=== PATIENT | male | born 1955 | race Caucasian/White ===

== ENCOUNTER 2023-01-25 00:37 | Day surgery (SDC) | payer BC, SELFPAY ==
[2023-01-24 13:30] VITALS: BMI 39.4
[2023-01-25] VITALS (10 sets, daily range): BP systolic 89–137; BP diastolic 48–90; PULSE 48–77; RESP 14–18; TEMP 36.4; O2SAT 96–99; BMI 38.7
--- NOTE | 2023-01-25 08:30 | ECG_ITS ---
Measurements Intervals [place] Rate: 56 P: 61 SD: 196 QRS: 36 QRSD: 100 T: 71 QT: 430 QTc: 417 Interpretive Statements SINUS BRADYCARDIA W ATRIAL PREMATURE COMPLEX POSSIBLE LEFT ATRIAL ENLARGEMENT LOW QRS VOLTAGE IN LIMB LEADS CANNOT RULE OUT SEPTAL INFARCT, AGE INDETERMINATE BORDERLINE T WAVE ABNORMALITY- HIGH LATERAL LEADS ABNORMAL ECG COMPARED TO ECG 01/25/2023 08:37:02 SINUS BRADYCARDIA NOW PRESENT Electronically Signed On 01-25-2023 11:12:22 RISK MGR by Jn Shelley D.O.
[2023-01-25] MEDS: SODIUM CHLORIDE 0.9% IV 1,000 ML 30 ML IV CONT (09:15)
[2023-01-25 09:33] LABS: Anion Gap 6 mmol/L (8-16); Blood Urea Nitrogen 17 mg/dL (9-20); Calcium 8.8 mg/dL (8.4-10.2); Carbon Dioxide 24 mmol/L (22-30); Chloride 103 mmol/L (98-107); Estimated CRCL calculation 86 ml/min; Estimated Glomerular Filt Rate > 60; Glucose 106 mg/dL (65-110); Magnesium 2.2 mg/dL (1.6-2.3); Potassium 4.1 mmol/L (3.4-5.0); Sodium 133 mmol/L (137-145)
--- NOTE | 2023-01-25 10:30 | ECG_ITS ---
Measurements Intervals [place] Rate: 69 P: DC: 0 QRS: 45 QRSD: 110 T: 25 QT: 376 QTc: 404 Interpretive Statements ATRIAL FIBRILLATION CANNOT RULE OUT SEPTAL INFARCT, AGE INDETERMINATE ABNORMAL ECG NO PREVIOUS ECG AVAILABLE FOR COMPARISON Electronically Signed On 01-25-2023 8:39:53 SENIOR DATA SCIENTIST by Jn Shelley D.O.
--- NOTE | 2023-01-25 10:39 | WPDMODSED ---
Moderate Sedation Note-Pt Data Patient Data Diagnosis: Atrial fibrillation of unknown chronicity Present Complaint: No complaints this morning Procedure to be performed/Plan: DC cardioversion Allergies Allergy/AdvReac Type Severity Reaction Status Date / Time ALEJANDRA Inhibitors Allergy Mild cough Verified 01/25/23 08:44 lisinopril AdvReac Mild COUGH Verified 01/25/23 08:44 Home Medications Medication Instructions Recorded Confirmed Type calcium carbonate 400 mg calcium 400 mg PO DAILY PRN Indigestion 01/15/20 01/24/23 History (1,000 mg) chewable tablet (Tums Ultra) cetirizine 10 mg tablet (Zyrtec) 10 mg PO DAILY #90 tabs 04/30/22 01/24/23 Rx irbesartan 300 See Rx Instructions .Route 07/31/22 01/24/23 Rx mg-hydrochlorothiazide 12.5 mg .COMPLEX #90 tabs tablet amlodipine 5 mg tablet See Rx Instructions .Route 12/20/22 01/24/23 Rx .COMPLEX #90 tabs rosuvastatin 5 mg tablet See Rx Instructions .Route 12/20/22 01/25/23 Rx .COMPLEX #90 tabs clopidogrel 75 mg tablet See Rx Instructions .Route 12/28/22 01/25/23 Rx .COMPLEX #90 tabs apixaban 5 mg tablet (Eliquis) 5 mg PO BID Afib #60 tabs 01/18/23 01/25/23 Rx tamsulosin 0.4 mg capsule See Rx Instructions .Route 01/22/23 01/24/23 Rx .COMPLEX #90 caps finasteride 5 mg tablet See Rx Instructions .Route 01/23/23 01/24/23 Rx .COMPLEX #90 tabs nicotine (polacrilex) 2 mg buccal 2 mg PO BID 01/24/23 01/24/23 History lozenge sotalol 80 mg tablet 80 mg PO BID 01/24/23 01/25/23 History Current Medications: Active Medications Sodium Chloride (Normal Saline Iv) 1,000 mls @ 30 mls/hr IV CONT .Q24H MIO Last Admin: 01/25/23 09:15 Dose: 30 mls/hr Sedation/Anesthesia: No previous sedation/anesthesia problems (including family history). [facility] Past Medical History Medical History Abnormal sense of taste Acute bronchitis due to infection Acute non-recurrent maxillary sinusitis Benign essential HTN Body mass index [BMI] 37.0-37.9, adult (06/05/19) Carotid atherosclerosis Colon cancer screening Coronary artery disease Dietary counseling and surveillance (08/01/18) Elevated glucose Encounter for vitamin deficiency screening History of CVA (cerebrovascular accident) without residual deficits Hyperlipidemia Other allergy status, other than to drugs and biological substances Screening PSA (prostate specific antigen) Sleep apnea, obstructive Vitamin B12 deficiency Family History Family History Father Family history of premature coronary heart disease Cerebrovascular accident Social History Social History Social History: Smoking packs per day: 1 Smoking cigarettes per day: 20.0 Years smoked: 35 Smoking pack-years: 35.00 Smoking status: Former smoker Tobacco type: cigarettes Second hand tobacco smoke exposure: No Smoking end date: 12/23/20 Alcohol intake: current Alcohol use details: about once a week Substance use: never Substance use type: does not use Living arrangements: with family Occupation/Education: occupation Gender identity (if verbalized by the patient): Male Sexual Orientation (if Verbalized by the Patient): Straight or Heterosexual Spiritual care concerns: No Mod Sed Physical Exam Physical Exam Pre Procedural Exam: Normal: Nose, Neck, Throat, Airway, Lungs, Heart Size, Heart Rate, Neuro Exam and Extremities and Variation: Appearance (Obese man no apparent distress) and Heart Rhythm (Irregularly irregular) Hours since solid foods: 12 Hours since liquid intake: 12 Mallampati Classification: class II Internal Medicine - PN: Obj Da Vital Signs Vital Signs: Vital Signs - 24 hr 01/25/23 08:49 Temperature 36.4 C L Pulse Rate 76 Respiratory Rate 16 Blood Pressure 118/77 Pulse Oximetry 97 Oxygen Delivery Room Air Meds
--- NOTE | 2023-01-25 10:51 | P.PCNCC_ITS ---
Cardiac Cath Procedure Note Date of procedure:: 01/25/23 Performing physician:: Shola Ramirez MD Indication:: Atrial fibrillation Brief clinical history:: This is a 67-year-old man with atrial fibrillation of recent onset. Chronicity of the arrhythmia is not exactly known. He has been anticoagulated as an outpatient an attempt was scheduled this morning for cardioversion. Procedure Procedure performed:: DC cardioversion Sedation/Medication given:: IV propofol in aliquots total dosage of 70 mg Access site:: Right hand Estimated blood loss:: 0 Procedure note:: Patient was brought to the cardiac catheterization lab holding area in the state defibrillator patches were placed in the AP position. Defibrillator was turned on at 200 joules output synchronized to the R-wave. He was then sedated with propofol a total dosage of 70 mg was given with in 2 aliquots. This provided excellent sedation. He was counter shocked with 200 joules x1 attempt which restored sinus bradycardia with heart rate 50-55. Findings:: As above Conclusion:: Successful uncomplicated DC cardioversion of atrial fibrillation restoring sinus rhythm using 200 joules x1 shock Shola Ramirez MD [facility]
== END 2023-01-25 12:20 | disposition home or self-care (01) ==
PROVIDERS: PCP Family Medicine; Visit Provider Specialist
PROC: 5A2204Z Restoration of Cardiac Rhythm, Single (ICD-10-PCS; principal; 2023-01-25 10:00)
DX: I48.91 Unspecified atrial fibrillation (principal); I11.9 Hypertensive heart disease without heart failure; I25.10 Atherosclerotic heart disease of native coronary artery without angina pectoris; E78.5 Hyperlipidemia, unspecified; G47.33 Obstructive sleep apnea (adult) (pediatric); I73.9 Peripheral vascular disease, unspecified; Z86.73 Personal history of transient ischemic attack (TIA), and cerebral infarction without residual deficits; Z87.891 Personal history of nicotine dependence; Z79.02 Long term (current) use of antithrombotics/antiplatelets; Z79.01 Long term (current) use of anticoagulants
CPT/HCPCS: 36415; 80048; 83735; 92960; J2704; J7030

== ENCOUNTER 2023-11-12 00:45 | Day surgery (SDC) | payer BC, SELFPAY ==
[2023-11-01 14:57] VITALS: BMI 38.4
--- NOTE | 2023-11-08 10:29 | SUR.PREOP ---
Patient called regarding upcoming procedure. Reviewed preop instructions, appointment times, and procedure prep.
[2023-11-12 06:53] VITALS: BP 112/62; PULSE 65; RESP 20; TEMP 36.3; O2SAT 100
[2023-11-12 06:54] VITALS: BMI 38.0
[2023-11-12] MEDS: LACTATED RINGERS 1,000 ML 150 ML IV CONT (07:05)
[2023-11-12 07:07] LABS: Glucose Point of Care 97 mg/dl (65-105)
--- NOTE | 2023-11-12 07:12 | WPDANESEPPF ---
Anes - Initial Pre Proc Eval Procedure: Operation Date: 11/12/23 08:00 Proposed Procedures p Screening Colonoscopy - Jose De Jesus Rutherford MD Date/Time: 11/12/23 07:12 Surgeon: Jose De Jesus Rutherford MD Pre Op Diagnosis: Hx of colon polyps Patient Data Age: 67 Gender: M Height: 1.7 m Weight: 110 kg Last Vital Signs Temp 36.3 C L 11/12/23 06:53 Pulse 65 11/12/23 06:53 Resp 20 11/12/23 06:53 BP 112/62 11/12/23 06:53 Pulse Ox 100 11/12/23 06:53 O2 Del Method Room Air 11/12/23 06:53 Allergies Allergy/AdvReac Type Severity Reaction Status Date / Time ALEJANDRA Inhibitors Allergy Mild cough Verified 11/12/23 06:50 lisinopril Allergy Mild COUGH Verified 11/12/23 06:50 Home Medications Medication Instructions Recorded Confirmed Type clopidogrel 75 mg tablet See Rx Instructions .Route 12/28/22 11/01/23 Rx .COMPLEX #90 tabs nicotine (polacrilex) 2 mg buccal 2 mg PO BID PRN Nicotine Cravings 01/24/23 11/01/23 History lozenge sotalol 80 mg tablet 80 mg PO BID 01/24/23 11/01/23 History cetirizine 10 mg tablet See Rx Instructions .Route 03/04/23 11/01/23 Rx .COMPLEX #90 tabs rosuvastatin 5 mg tablet See Rx Instructions .Route 06/17/23 11/01/23 Rx .COMPLEX #90 tabs finasteride 5 mg tablet See Rx Instructions .Route 07/05/23 11/01/23 Rx .COMPLEX #90 tabs polyethylene glycol 3350 17 17 g PO DAILY PRN Constipation 08/01/23 11/01/23 History gram/dose oral powder (Miralax) apixaban 5 mg tablet (Eliquis) See Rx Instructions .Route 09/09/23 11/01/23 Rx .COMPLEX #60 tabs irbesartan 300 See Rx Instructions .Route 09/19/23 11/01/23 Rx mg-hydrochlorothiazide 12.5 mg .COMPLEX #90 tabs tablet dulaglutide 0.75 mg/0.5 mL See Rx Instructions .Route 10/25/23 11/01/23 Rx subcutaneous pen injector .COMPLEX #2 mL (Trulicity) azelastine 137 mcg (0.1 %) nasal See Rx Instructions .Route 11/01/23 11/01/23 History spray aerosol .COMPLEX PRN Congestion famotidine-Ca carb-mag hydrox 10 1 tablet PO BID 11/01/23 11/01/23 History mg-800 mg-165 mg chewable tablet (Pepcid Complete) amlodipine 5 mg tablet See Rx Instructions .Route 11/04/23 11/12/23 Rx .COMPLEX #90 tabs tamsulosin 0.4 mg capsule See Rx Instructions .Route 11/07/23 11/12/23 Rx .COMPLEX #90 caps Laboratory Tests 11/12/23 07:03 POC Capillary Glucose 97 mg/dl (65-105) Patient hx anesthesia problems: none Family hx anesthesia problems: none Results Review: All pre-operative results and documents have been reviewed as part of the pre-operative evaluation. [facility] Past Medical History Medical History Abnormal sense of taste Acute bronchitis due to infection Acute non-recurrent maxillary sinusitis Benign essential HTN Body mass index [BMI] 37.0-37.9, adult (06/05/19) Carotid atherosclerosis Colon cancer screening Coronary artery disease Dietary counseling and surveillance (08/01/18) Elevated glucose Encounter for vitamin deficiency screening History of CVA (cerebrovascular accident) without residual deficits Hyperlipidemia Other allergy status, other than to drugs and biological substances Screening PSA (prostate specific antigen) Sleep apnea, obstructive Vitamin B12 deficiency Family History Family History Father Family history of premature coronary heart disease Cerebrovascular accident Social History Social History Social History: Smoking packs per day: 1 Smoking cigarettes per day: 20.0 Years smoked: 35 Smoking pack-years: 35.00 Smoking status: Former smoker Tobacco type: cigarettes Second hand tobacco smoke exposure: No Smoking end date: 12/23/20 Alcohol intake: current Drinks per week: 2 Alcohol use details: BEERS Substance use: never Substance use type: does not use
--- NOTE | 2023-11-12 07:47 | PM.HPGS ---
History of Present Illness History of Present Illness Consent: Risks, benefits, and alternatives have been discussed and questions answered. Patient agrees to proceed with procedure. Chief complaint: Hx of colon polyps Narrative: Nj Garcia is a 67 year old male with colon polyp in 2018 Review of Systems Constitutional: Constitutional: Denies headache(s) and Denies weakness Eyes: Eyes: Denies blurry vision ENT: Reports Normal hearing present, Denies headache(s) and Denies neck pain Cardiovascular: Cardiovascular: Denies chest pain and Denies dyspnea Respiratory: Respiratory: Denies dyspnea Gastrointestinal: Gastrointestinal: Reports no additional gastrointestinal complaints Genitourinary: Genitourinary: Denies dysuria Musculoskeletal: Musculoskeletal: Denies neck pain Integumentary/Breasts: Skin/Breast: Denies dry skin Neurologic: Reports Normal hearing present, Denies headache(s) and Denies weakness Psychiatric: Psychiatric: Denies anxiety Endocrine: Endocrine: Denies change in body appearance Hematologic/Lymphatic: Hematologic/Lymphatic: Denies easy bleeding Allergic/Immunologic: Allergic/Immunologic: Denies urticaria PMFSH Past Medical History Medical History Abnormal sense of taste Acute bronchitis due to infection Acute non-recurrent maxillary sinusitis Benign essential HTN Body mass index [BMI] 37.0-37.9, adult (06/05/19) Carotid atherosclerosis Colon cancer screening Coronary artery disease Dietary counseling and surveillance (08/01/18) Elevated glucose Encounter for vitamin deficiency screening History of CVA (cerebrovascular accident) without residual deficits Hyperlipidemia Other allergy status, other than to drugs and biological substances Screening PSA (prostate specific antigen) Sleep apnea, obstructive Vitamin B12 deficiency Family History Family History Father Family history of premature coronary heart disease Cerebrovascular accident Social History Social History Social History: Smoking packs per day: 1 Smoking cigarettes per day: 20.0 Years smoked: 35 Smoking pack-years: 35.00 Smoking status: Former smoker Tobacco type: cigarettes Second hand tobacco smoke exposure: No Smoking end date: 12/23/20 Alcohol intake: current Drinks per week: 2 Alcohol use details: BEERS Substance use: never Substance use type: does not use Lack of Transportation: No Lack of Food: Never True Current Housing: I Have Housing Concerned About Future Housing: No Difficulty Paying Gas/Electric Bills: No Difficulty Paying for Meds: No Currently Unemployed: YES Education: Decline to Answer Difficulty w/ Childcare or Family Care: No Living arrangements: with family Occupation/Education: occupation Gender identity (if verbalized by the patient): Male Sexual Orientation (if Verbalized by the Patient): Straight or Heterosexual Spiritual care concerns: No Meds Home Medications and Allergies Home Medications Medication Instructions Recorded Confirmed Type clopidogrel 75 mg tablet See Rx Instructions .Route 12/28/22 11/01/23 Rx .COMPLEX #90 tabs nicotine (polacrilex) 2 mg buccal 2 mg PO BID PRN Nicotine Cravings 01/24/23 11/01/23 History lozenge sotalol 80 mg tablet 80 mg PO BID 01/24/23 11/01/23 History cetirizine 10 mg tablet See Rx Instructions .Route 03/04/23 11/01/23 Rx .COMPLEX #90 tabs rosuvastatin 5 mg tablet See Rx Instructions .Route 06/17/23 11/01/23 Rx .COMPLEX #90 tabs finasteride 5 mg tablet See Rx Instructions .Route 07/05/23 11/01/23 Rx .COMPLEX #90 tabs polyethylene glycol 3350 17 17 g PO DAILY PRN Constipation 08/01/23 11/01/23 History gram/dose oral powder (Miralax) apixaban 5 mg tablet (Eliquis) See Rx Instructions .Route 09/09/23
[2023-11-12 08:08] VITALS: BP 91/57; PULSE 79; RESP 17; O2SAT 97
[2023-11-12 08:18] VITALS: BP 104/59; PULSE 76; RESP 22; O2SAT 97
[2023-11-12 08:28] VITALS: BP 104/61; PULSE 69; RESP 21; O2SAT 98
== END 2023-11-12 08:35 | disposition home or self-care (01) ==
PROVIDERS: PCP Family Medicine; Visit Provider Internal Medicine Gastroenterology
PROC: 0DJD8ZZ Inspection of Lower Intestinal Tract, Via Natural or Artificial Opening Endoscopic (ICD-10-PCS; CPT 45378; principal; 2023-11-12 08:00)
DX: Z12.11 Encounter for screening for malignant neoplasm of colon (principal); K57.30 Diverticulosis of large intestine without perforation or abscess without bleeding; K64.8 Other hemorrhoids; I10 Essential (primary) hypertension; I25.10 Atherosclerotic heart disease of native coronary artery without angina pectoris; R73.9 Hyperglycemia, unspecified; Z86.73 Personal history of transient ischemic attack (TIA), and cerebral infarction without residual deficits; E78.5 Hyperlipidemia, unspecified; K59.00 Constipation, unspecified; G47.30 Sleep apnea, unspecified; E53.8 Deficiency of other specified B group vitamins; Z86.010 Personal history of colon polyps; Z87.891 Personal history of nicotine dependence; F10.90 Alcohol use, unspecified, uncomplicated; Z79.85 Long-term (current) use of injectable non-insulin antidiabetic drugs; Z79.02 Long term (current) use of antithrombotics/antiplatelets; Z79.01 Long term (current) use of anticoagulants; Z79.899 Other long term (current) drug therapy; Z82.49 Family history of ischemic heart disease and other diseases of the circulatory system; Z82.3 Family history of stroke
CPT/HCPCS: 45378; 82948; J2704; J7120

== ENCOUNTER 2024-04-21 08:09 | Outpatient (CLI) | payer BC, SELFPAY ==
--- NOTE | ~2024-04-21 | MMUS_ITS ---
EXAMINATION: MM diagnostic darío BI w joan, US breast RT limited HISTORY: Palpable right breast abnormality TECHNIQUE: Additional 3-D tomosynthesis images of the breasts were performed and synthetic 2-D images were generated. CAD analysis was submitted and interpreted. High resolution Limited right breast ult rasound was performed. COMPARISON: No prior studies for comparison. BREAST PARENCHYMAL COMPOSITION: Not dense: There are scattered areas of fibroglandular density. FINDINGS: MAMMOGRAPHIC FINDINGS: There is asymmetric gynecomastia, more so on the right. No suspicious masses, calcifications or archi tectural distortion in the either breast to suggest malignancy. ULTRASOUND: Limited right breast ultrasound: In the 11:00 position near the nipple there is asymmetric hypoechoic soft tissue, consistent with breast bud, corresponding to gynecomastia seen on mammography. No suspi cious masses to suggest malignancy. IMPRESSION: 1. No evidence for malignancy in either breast. Bilateral asymmetric gynecomastia. 2. Recommend further evaluation for gynecomastia as clinically warranted. BI-RADS Category 2: Benign finding(s). Reviewed, dictated and finalized at location B. IMPRESSION: 1. No evidence for malignancy in either breast. Bilateral asymmetric gynecomast ia. 2. Recommend further evaluation for gynecomastia as clinically warranted. BI-RADS Category 2: Benign finding(s).
== END 2024-04-21 08:10 | disposition home or self-care (01) ==
PROVIDERS: PCP Family Medicine; Visit Provider Family Medicine
DX: N63.10 Unspecified lump in the right breast, unspecified quadrant (principal); R92.8 Other abnormal and inconclusive findings on diagnostic imaging of breast
CPT/HCPCS: 76642; 77062; 77066; G0279

== ENCOUNTER 2024-05-06 09:59 | Outpatient (CLI) | payer BC, SELFPAY ==
--- NOTE | ~2024-05-06 | CT_ITS ---
CT Scan of the Chest without Contrast: Clinical Indication: Lung cancer screening, nicotine dependence Technique: Contiguous sections were acquired throughout the chest without intravenous contrast. Dose reduction technique was used on this scan by utilizing automated exposure control and iterative recon struction technique. The dose-length product (DLP) was 444.15 mGy-cm. COMPARISON: 04/30/2023 Findings: There is no evidence of any significant mediastinal, hilar or axillary lymphadenopathy. Extensive cor onary artery calcifications are present. There is no evidence of pleural or pericardial effusion. Stable 7 mm calcified left basilar pulmonary nodule. Images through the upper abdomen reveal no abnormalities. Impression: Lung RADS 2: Benign appearance. 12 month follow-up screening CT advised. Reviewed, dictated and finalized at location . Impression: Lung RADS 2: Benign appearance. 12 month follow-up screening CT advised.
== END 2024-05-06 10:00 | disposition home or self-care (01) ==
LOC: ANHIMG 10:03
PROVIDERS: PCP Family Medicine; Visit Provider Physician Assistant
DX: Z12.2 Encounter for screening for malignant neoplasm of respiratory organs (principal); Z87.891 Personal history of nicotine dependence
CPT/HCPCS: 71271